=== PATIENT | male | born 1960 | race Caucasian/White ===

== ENCOUNTER → 2018-06-24 12:59 | Outpatient (CLI) | payer OTHER, SELFPAY | PROVIDERS: Family Provider Family Medicine; PCP Family Medicine; Visit Provider Family Medicine | DX: M54.2 Cervicalgia (principal) | CPT/HCPCS: 72050 ==

== ENCOUNTER 2019-07-18 08:19 | Emergency (ER) | payer OTHER, SELFPAY ==
[2019-07-18 08:21] VITALS: BP 163/85; PULSE 99; RESP 17; TEMP 36.6; O2SAT 97; BMI 34.2
--- NOTE | 2019-07-18 08:35 | EKG12_ITS ---
Test Reason : CHEST OTHER Blood Pressure : / mmHG Vent. Rate : 092 BPM Atrial Rate : 092 BPM P-R Int : 150 ms QRS Dur : 088 ms QT Int : 360 ms P-R-T Axes : 052 -41 009 degrees QTc Int : 445 ms Normal sinus rhythm Left axis deviation Low voltage QRS Poor R-Wave Progression Abnormal ECG Confirmed by BALA ORTEGA, LINDSAY ([id number]), editor publications BOBBY GAMA ([id number]) on 07/20/2019 10:42:28 AM Referred By: LUIS E Confirmed By:LINDSAY MCKENNA MD
--- NOTE | 2019-07-18 08:35 | CT_ITS ---
STUDY: CT BRAIN WITHOUT CONTRAST REASON FOR EXAM: Male, 58 years old. History of fall. RADIATION DOSAGE (If Supplied By Facility): CTDIvol = ( 44.99 ) mGy, DLP = ( 863.60 ) mGycm TECHNIQUE: Transaxial CT imaging of the brain was performed without administration of intravenous contrast material. Individualized dose optimization techniques were used for this CT. COMPARISON: No relevant priors. FINDINGS: Normal soft tissue structures. Normal calvarium. Normal size ventricles and extra-axial spaces for the patient's age. Normal white matter tracts of the cerebral hemispheres. Normal basal ganglia and thalami. Normal brainstem. Normal cerebellum. There is no intracranial hemorrhage. There are no findings of an acute ischemic infarction. Atherosclerotic calcification of the vertebral arteries and cavernous portions of the internal carotid arteries bilaterally. Normal visualized paranasal sinuses. CT/Brain/Head without Contrast IMPRESSION: Normal unenhanced CT scan of the brain. Electronically Signed: Han Awan, at 10:03 EDT , Service support ,
--- NOTE | 2019-07-18 08:35 | CT_ITS ---
STUDY: CT ABDOMEN AND PELVIS WITH CONTRAST REASON FOR EXAM: Male, 58 years old. History of fall. Right rib pain. RADIATION DOSAGE (If Supplied By Facility): CTDIvol = ( 23.43 ) mGy, DLP = ( 2516.56 ) mGycm TECHNIQUE: Transaxial images were obtained from the dome of the diaphragm to the symphysis pubis without oral contrast. 100 IV Isovue 300 was administered. Sagittal and coronal images were reconstructed. Individualized dose optimization techniques were used for this CT. COMPARISON: None. FINDINGS: Increased markings at the lung bases slightly worse on the right side with areas of confluence suggestive of bibasilar atelectasis. Coronary artery calcification. Normal liver. Normal gallbladder and extrahepatic biliary system. There are multiple benign calcified granulomata of the spleen. Normal pancreas. Normal bilateral adrenal glands. Normal right kidney. Normal left kidney. Normal visualized stomach. Normal small intestine. Normal colon. The appendix is visualized and appears normal. There is diffuse atherosclerotic calcification of the abdominal aorta, without a demonstrated aneurysm. Normal inferior vena cava. There is borderline retroperitoneal lymphadenopathy with enlarged nodes no greater than 10mm in the short axis diameter. Normal urinary bladder. Calcification of the vas deferens. There is a small umbilical hernia containing fat. There are degenerative changes of the visualized lumbar spine. Minimal loss of the superior endplate of the L1 and T12 vertebrae. Schmorl node seen in the superior endplate of the L4 vertebral CT/Abdomen/Pelvis W IV Cont ONLY IMPRESSION: Increased markings at the lung bases suggestive of bibasilar atelectasis. This is worse on the right side. Electronically Signed: Han Awan, at 10:24 EDT , Service support ,
--- NOTE | 2019-07-18 08:35 | CT_ITS ---
STUDY: CT CHEST WITH CONTRAST REASON FOR EXAM: Male, 58 years old. History of fall. Right-sided rib pain. RADIATION DOSAGE (If Supplied By Facility): CTDIvol = ( 23.43 ) mGy, DLP = ( 2516.56 ) mGycm TECHNIQUE: Transaxial imaging was performed following intravenous administration of 100 IV Isovue 300. Multiplanar coronal and sagittal images were reformatted. Individualized dose optimization techniques were used for this CT. COMPARISON: None. FINDINGS: Increased markings at the lung bases worse on the right side with areas of confluence suggestive of bibasilar atelectasis. There is no demonstrated pleural abnormality. There are calcifications of the coronary arteries. There are multiple small lymph nodes within the mediastinum, which are normal in size and morphology most compatible with reactive lymph hyperplasia. Normal hilar regions. Normal enhanced pulmonary arteries. Normal aorta arch and descending thoracic aorta. There are multi-level degenerative changes of the thoracic spine. Nondisplaced fracture of the right sixth and seventh ribs anterolaterally. Small hiatal hernia. CT/Chest WITH Contrast IMPRESSION: Nondisplaced fractures involving the anterolateral aspect of the right sixth and seventh ribs anterolaterally. Findings suggest some bibasilar atelectasis worse on the right side. Electronically Signed: Han Awan, at 10:26 EDT , Service support ,
--- NOTE | 2019-07-18 08:35 | CT_ITS ---
STUDY: CT CERVICAL SPINE WITHOUT CONTRAST REASON FOR EXAM: Male, 58 years old. History of trauma. RADIATION DOSAGE (If Supplied By Facility): CTDIvol = ( 28.55 ) mGy, DLP = ( 575.78 ) mGycm TECHNIQUE: High resolution transaxial imaging was performed without contrast material. Sagittal and coronal images were reconstructed. Individualized dose optimization techniques were used for this CT. COMPARISON: None FINDINGS: Normal craniovertebral junction. There are degenerative changes of the anterior atlantoaxial articulation. Normal odontoid process. Normal cervical lordosis. Normal vertebral bodies and posterior osseous elements. C2-3: Normal endplates. Normal disc height and morphology. Normal central canal and intervertebral neuroforamina. C3-4: Marked degree of disc space narrowing and spondylosis. Moderate degree of bilateral neural foraminal stenosis worse on the left side as well as mild central canal stenosis. C4-5: Normal endplates. Normal disc height and morphology. Normal central canal and intervertebral neuroforamina. C5-6: Normal endplates. Normal disc height and morphology. Normal central canal and intervertebral neuroforamina. C6-7: Marked degree of disc space narrowing and spondylosis. Uncovertebral arthrosis. Mild degree of bilateral neural foraminal stenosis. C7-T1: Marked degree of disc space narrowing with spondylosis. Mild degree of bilateral neural foraminal stenosis. Normal visualized soft tissue structures. CT/Spine Cervical without Contras IMPRESSION: Multilevel degenerative changes, as described above. Electronically Signed: Han Awan, at 10:20 EDT , Service support ,
--- NOTE | 2019-07-18 08:37 | ED.VISSUMM ---
- ER Visit Summary Date of Service: 07/18/19 Chief Complaint: Chest wall pain History of Present Illness: The patient is a 58 M presenting with chest wall pain. Patient states that he woke up around 2:30 AM. He felt like his blood sugar was low. He stood up and passed out. He hit the nightstand. He does not believe he hit his head. He complains of severe pain in his chest wall. He was given glucose and juice. He declined transport to the ED at that time. He woke up this morning with continued pain. He has tried Motrin at home. His pain is worse with movement. He states that he has been a diabetic since he was a child and this is not unusual for him. Denies other complaints. Physical Examination: Vitals are stable. Patient is afebrile. Alert no acute distress. HEENT exam is unremarkable. Neck is nontender Lungs are clear and equal bilaterally. Diffuse tenderness chest wall with no crepitus Heart is regular rate and rhythm. Abdomen is soft right upper quadrant tenderness with no rebound or guarding Back: No midline tenderness Extremities are unremarkable. Skin is warm and dry. No focal neurologic deficit. Remainder of exam is unremarkable. Emergency Department Course and Treatment: Patient was given IV fluids, morphine, Zofran IV. CBC showed white count of 15.9. Chemistries show glucose 435, BUN 32, creatinine 1.64. There is no old for comparison but the patient states his creatinine runs above normal. Troponin is negative. CT head and neck show no acute process. CT chest abdomen pelvis show nondisplaced fractures involving the anterolateral aspect of the right sixth and seventh ribs anterolaterally. Findings suggest some bibasilar atelectasis worse on the right side. Patient's pain is controlled in the ED. He is given an incentive spirometer. He is given a prescription for Percocet. Repeat BGT 324. Patient is comfortable managing this at home. He will follow-up with his primary care physician. Advised return to ED for worsening complaints. Disposition: Discharge home Impression: Right sixth and seventh rib fracture This note was generated with [employer] dictation software. It may contain incorrect words, spelling, and punctuation that were not noted in review of the chart prior to signing ED Disposition - Plan for ED Patient: Instructions: FRACTURE, Rib Prescriptions: Oxycodone HCl/Acetaminophen [Percocet 5/325] 1 tab PO Q6H PRN PRN 5 Days #20 tab PRN Reason: Pain Prescription Printed Referrals: Ayesha Miller MD [Primary Care Provider] -
--- NOTE | 2019-07-18 08:38 | NURSING ---
NO OLD EKGS
[2019-07-18] MEDS: Morphine 4 MG/ML Syringe IV ×2 (08:52→10:17)
[2019-07-18] MEDS: Ondansetron 4 MG/2 ML Vial IV (08:52)
[2019-07-18] MEDS: 0.9% Normal Saline 1,000 ML 1000 ML IV (08:53)
[2019-07-18 09:02] LABS: Absolute Lymphocyte Count 1.68 X10^3/uL (0.83-4.51); Absolute Neutrophil Count 12.9 X10^3/uL (2.0-7.7); Basophil# 0.04 X10^3/uL; Basophil% 0.3 % (0-1); Eosinophil# 0.05 X10^3/uL; Eosinophils% 0.3 % (0-5); Hematocrit 45.1 % (40-54); Hemoglobin 15.3 g/dL (13.0-16.5); Lymphocyte # 1.68 X10^3/ul (4.0); Lymphocyte % 10.6 % (19-41); Mean Corp Hgb Conc 33.9 g/dL (32-36); Mean Corpuscular Hgb 30.6 pg (27.0-32.0); Mean Corpuscular Volume 90.2 fL (80-94); Mean Platelet Vol. 8.3 fl (6.2-12.0); Monocyte# 1.07 X10^3/uL; Monocyte% 6.8 % (0-10); NRBC Flagged by Analyzer 0 % (0-5); Neutrophil # 12.89 X10^3/uL (2.7-7.7); Neutrophil % 81.2 % (47-70); Platelet Count 252 K/mm3 (150-450); RBC Distribution Width CV 13.2 % (11.6-14.6); RBC Distribution Width SD 43.6 fl (35.1-43.9); White Blood Count 15.9 K/mm3 (4.4-11.0)
[2019-07-18 09:27] LABS: Anion Gap 11 (5-15); BUN 32 mg/dL (7-18); BUN/Creat Ratio 19.5 RATIO (10-20); Chloride 102 mmol/L (98-107); Creatinine, Serum 1.64 mg/dL (0.70-1.30); EST Glomerular Filtration Rate 46 mL/min (>60); Est Glom Filt Rate - Afr Amer 56 mL/min (>60); Estimated Creatinine Clearance 55.49 ml/min; Glucose 435 mg/dL (74-106); Potassium 4.6 mmol/L (3.5-5.1); Sodium Level 134 mmol/L (136-145)
[2019-07-18] MEDS: 0.9% Normal Saline 1,000 ML 999 ML IV (09:50)
--- NOTE | 2019-07-18 10:45 | ED.DEP ---
ED Disposition - Plan for ED Patient: Instructions: FRACTURE, Rib Prescriptions: Oxycodone HCl/Acetaminophen [Percocet 5/325] 1 tablet PO Q6H PRN PRN 5 Days #20 tablet PRN Reason: Pain Referrals: Ayesha Miller MD [Primary Care Provider] -
[2019-07-18 10:46] LABS: Bedside Glucose 324 mg/dL (70-110)
[2019-07-18 11:03] VITALS: BP 135/76; PULSE 85; O2SAT 99
== END 2019-07-18 11:06 | disposition home or self-care (01) ==
LOC: ED 08:43
PROVIDERS: Emergency Provider Emergency Medicine; Family Provider Family Medicine; PCP Family Medicine
DX: S22.41XA Multiple fractures of ribs, right side, initial encounter for closed fracture (principal); R55 Syncope and collapse; W22.8XXA Striking against or struck by other objects, initial encounter; Y93.9 Activity, unspecified; Y92.9 Unspecified place or not applicable; E11.9 Type 2 diabetes mellitus without complications; Z79.4 Long term (current) use of insulin
CPT/HCPCS: 70450; 71260; 72125; 74177; 80048; 82962; 84484; 85025; 93005; 96361; 96374; 96375; 96376; 99283; J7030; Q9967; A4216; J2405

== ENCOUNTER 2019-07-20 08:37 | Emergency (ER) | payer OTHER, SELFPAY ==
[2019-07-20 08:38] VITALS: BP 158/76; PULSE 71; RESP 20; TEMP 36.9; O2SAT 96; BMI 36.3
--- NOTE | 2019-07-20 08:58 | RAD_ITS ---
STUDY: X-RAY CHEST REASON FOR EXAM: Male, 58 years old. Chest pain, rib pain, fall TECHNIQUE: PA and lateral views of the chest. COMPARISON: None. FINDINGS: The lungs are clear and expanded. There is no demonstrated pleural abnormality. There is moderate cardiac enlargement. Normal mediastinum and marion. Normal visualized pulmonary arteries. Normal visualized aortic arch and descending thoracic aorta. Normal visualized thoracic spine. Normal visualized ribs, clavicles, and shoulders. There is no demonstrated abnormality of the visualized soft tissue structures of the upper abdomen. RAD/Chest PA and Lateral IMPRESSION: No active disease. Electronically Signed: Praneeth Aguilar MD at 9:39 EDT Tel , Service support ,
--- NOTE | 2019-07-20 09:01 | ED.DCSUM_ITS ---
- ER Visit Summary Date of Service: 07/20/19 Chief Complaint: Complaining of right posterior back pain lateral to his T- spine. History of Present Illness: The patient is a 58 M recent fall secondary to low blood sugar causing fractures to his sixth and seventh ribs anteriorly. He was treated in this ER had CAT scans at that time of his C-spine chest abdomen and pelvis. The only findings were the rib fractures. He currently is on pain meds. States today he was having back pain along with his rib pain. Denies any shortness of breath. No fever or cough. Physical Examination: Middle-aged male. Vital signs are stable. He is afebrile. He is laying flat on his back on a EMS device to help move him. He does not look septic or toxic. H EENT exam unremarkable. Pupils round reactive light. C-spine nontender. No lymphadenopathy. Lungs clear to auscultation bilaterally. Heart regular rhythm no murmur rate about 70. Abdomen soft nontender normal bowel sounds no peritoneal signs. Chest wall right anterior chest wall discomfort consistent with fractures of the sixth seventh rib. No ecchymosis. No crepitance or subcu air. Patient is moving all 4 extremities. Neurovascular intact. Is 5-5 virtualization engineer strength bilaterally. He has 5 out of 5 dorsi and plantar flexion both lower extremities. Normal range of motion. Normal sensation. No cauda equina no saddle anesthesia. Test Results: Chest x-ray AP and lateral views x2 read by myself shows shows no acute abnormality read both by myself and the radiologist. No pneumothorax. T- spine is unremarkable. Emergency Department Course and Treatment: Treated with IV morphine and Zofran. Exam patient is doing well. Will be given a second dose of morphine. Treatment Plan: Valium for muscle spasms. Motrin and his pain medication for pain. No driving while on the muscle relaxant and/or pain medication. Follow- up with his doctor. Disposition: discharge Impression: Acute upper back pain secondary to parathoracic muscle spasm Recent fall with known rib fractures #6 and #7 on the right This note was generated with [employer] dictation software. It may contain incorrect words, spelling, and punctuation that were not noted in review of the chart prior to signing ED Disposition - Plan for ED Patient: Referrals: Ayesha Miller MD [Primary Care Provider] -
[2019-07-20] MEDS: Ondansetron 4 MG/2 ML Vial IV (09:05)
[2019-07-20] MEDS: morphine 8 MG/ML Syringe IV (09:05)
--- NOTE | 2019-07-20 10:34 | ED.DEP ---
ED Disposition - Plan for ED Patient: Disposition: Home or Assisted Living Instructions: BACK SPASM, No Trauma Prescriptions: Diazepam [Valium] 5 mg PO TID PRN PRN #20 tab PRN Reason: back spasms Prescription Printed Referrals: Ayesha Miller MD [Primary Care Provider] - As Needed Additional Instructions: Hot shower, warm baths and heating pad to back for muscle spasms. Ice to your broken ribs. Pain medication and Motrin for pain. Valium for muscle spasms. No driving while using either the muscle relaxant (Valium) or the pain medication. Follow-up with your doctor as needed.
[2019-07-20 10:46] VITALS: BP 149/72; PULSE 84; RESP 20; O2SAT 99
[2019-07-20] MEDS: morphine 8 MG/ML Syringe 6 MG IV (11:45)
[2019-07-20 11:58] VITALS: BP 140/68; PULSE 72; RESP 18; O2SAT 97
== END 2019-07-20 11:59 | disposition home or self-care (01) ==
PROVIDERS: Emergency Provider Emergency Medicine; Family Provider Family Medicine; PCP Family Medicine
DX: M54.9 Dorsalgia, unspecified (principal); M62.830 Muscle spasm of back; S22.41XD Multiple fractures of ribs, right side, subsequent encounter for fracture with routine healing; W19.XXXD Unspecified fall, subsequent encounter; E11.9 Type 2 diabetes mellitus without complications; I10 Essential (primary) hypertension; Z79.4 Long term (current) use of insulin; Z79.899 Other long term (current) drug therapy
CPT/HCPCS: 71046; 96374; 96375; 96376; 99285; A4216; J2405

== ENCOUNTER 2023-01-10 16:50 | Emergency (ER) | payer OTHER, SELFPAY ==
--- NOTE | 2023-01-10 16:47 | EKG12_ITS ---
Test Reason : Blood Pressure : / mmHG Vent. Rate : 084 BPM Atrial Rate : 084 BPM P-R Int : 144 ms QRS Dur : 094 ms QT Int : 388 ms P-R-T Axes : 056 -60 052 degrees QTc Int : 458 ms Normal sinus rhythm Left anterior fascicular block Abnormal ECG Confirmed by CHI ORTEGA, LUÍS ([id number]), art editor BOBBY GAMA ([id number]) on 01/12/2023 9:54:38 AM Referred By: ANNIE Confirmed By:YOSVANY MIRELES MD
[2023-01-10 16:51] VITALS: BP 167/87; PULSE 85; RESP 24; TEMP 36.4; O2SAT 96; BMI 33.6
[2023-01-10] MEDS: Ondansetron 4 MG/2 ML Vial IV (16:58)
[2023-01-10] MEDS: Dextrose 50%-Water 25 GM/50 ML DISP.SYRIN IV (17:02)
[2023-01-10 17:07] LABS: Absolute Lymphocyte Count 1.84 X10^3/uL (0.83-4.51); Basophil# 0.06 X10^3/uL; Basophil% 0.5 % (0-1); Eosinophil# 0.08 X10^3/uL; Eosinophils% 0.6 % (0-5); Hematocrit 50.5 % (40-54); Lymphocyte # 1.84 X10^3/ul (0.83-4.51); Lymphocyte % 14.1 % (19-41); Mean Corp Hgb Conc 33.7 g/dL (32-36); Mean Corpuscular Volume 89.2 fL (80-94); Mean Platelet Vol. 8.7 fl (6.2-12.0); Monocyte# 0.93 X10^3/uL; Monocyte% 7.1 % (0-10); NRBC Flagged by Analyzer 0 % (0-5); Neutrophil # 10.01 X10^3/uL (2.7-7.7); Platelet Count 256 K/mm3 (150-450); RBC Distribution Width CV 13.3 % (11.6-14.6); RBC Distribution Width SD 43.3 fl (35.1-43.9); Red Blood Count 5.66 M/mm3 (4.6-6.2)
--- NOTE | 2023-01-10 17:11 | EDS_ITS ---
HPI <SANCHO Kwong - Last Filed: 01/10/23 19:01> History of Present Illness Chief Complaint: Hypoglycemia Narrative Narrative: Patient is a type I diabetic. At 12:30 PM he ate a hamburger and [employer] from [employer] and it immediately upset his stomach and he went upstairs to lie down. He did NOT take insulin before lunch. About 1:30 PM he started vomiting multiple times. His blood sugar was low around 60 and his tried administering glucose tablets but he would vomit them up. Around 1:30 also started to seem little confused and slow to respond. Since they could not get his sugars up they called EMS. He normally is a very regulated diabetic and takes Humalog and Lantus. He is not sure how much Humalog he had before lunch. He denies diarrhea or abdominal pain currently. PFSH <SANCHO Kwong - Last Filed: 01/10/23 19:01> [facility] Home Medications amlodipine 5 mg tablet 5 mg PO DAILY 07/18/19 [History Last Taken Unknown] atorvastatin 10 mg tablet 10 mg PO DAILY 07/18/19 [History Last Taken Unknown] insulin glargine 100 unit/mL (3 mL) subcutaneous pen 20 unit subcut DAILY 07/18/19 [History Last Taken Unknown] levothyroxine 50 mcg tablet 50 mcg PO DAILY 07/18/19 [History Last Taken Unknown] quinapril 20 mg tablet 20 mg PO DAILY 07/18/19 [History Last Taken Unknown] diazepam 2 mg tablet 5 mg PO TID PRN PRN back spasms #20 tabs 07/20/19 [Rx Last Taken Unknown] promethazine 25 mg tablet 25 mg PO Q6H PRN nausea and vomiting #12 tabs 01/10/23 [Rx Last Taken Unknown] Allergy/AdvReac Type Severity Reaction Status Date / Time No Known Allergies Allergy Verified 07/18/19 08:20 Social History Smoking Status: Never smoker ROS <SANCHO Kwong - Last Filed: 01/10/23 19:01> ROS ED ROS Narrative Constitutional: Negative for fever, chills, malaise. CVS: Negative for chest pain, syncope. Respiratory: Negative for shortness of breath. GI: Positive for nausea, vomiting. Negative for abdominal pain, diarrhea. : Negative for dysuria. Neuro: Negative for headache. EXAM <SANCHO Kwong - Last Filed: 01/10/23 19:01> Physical Exam Narrative Exam Narrative: CONST: Patient sitting in no acute distress. EYES: Normal inspection. ENT: Normal inspection, moist mucous membranes. NECK: Normal inspection. RESP: No respiratory distress, CTAB. CVS: Regular rate and rhythm, no murmur, no gallop. ABD: Soft and nontender, no guarding or rebound, nondistended. SKIN: Color normal, no rash, warm, dry, intact. EXTREMITIES: Normal appearance, no pedal edema. NEURO: Oriented x4 but somewhat slow to respond to historical questions. Face symmetric, moving all extremities. PSYCH: Normal affect. Const Vital Signs: 01/10/23 16:51 01/10/23 17:03 01/10/23 18:54 Temperature 97.6 F L Temperature Source Oral Pulse Rate 85 Respiratory Rate 24 H Respiratory Effort Normal Non-Labored Respiratory Pattern Normal Blood Pressure 167/87 H 163/85 H Blood Pressure Mean 113 111 Pulse Ox 96 Oxygen Delivery Method Room Air <Dr. Sumit Denny DO - Last Filed: 01/10/23 20:48> Physical Exam Const Vital Signs: 01/10/23 16:51 01/10/23 17:03 01/10/23 18:54 Temperature 97.6 F L Temperature Source Oral Pulse Rate 85 Respiratory Rate 24 H Respiratory Effort Normal Non-Labored Respiratory Pattern Normal Blood Pressure 167/87 H 163/85 H Blood Pressure Mean 113 111 Pulse Ox 96 Oxygen Delivery Method Room Air MDM <SANCHO Kwong - Last Filed: 01/10/23 19:01> [facility] Narrative Medical decision making narrative: History gathered from: patient and After eating lunch patient developed nausea and vomiting, hypoglycemia and resultant altered mental status. He arrives awake and alert. BP 167/87, RR 24, otherwise normal vital signs. He is fully alert and oriented but slow to respond and cannot provide details about the onset. No focal neurological deficits. Heart is regular, lungs clear, abdomen soft and nontender. Bedside glucose is 43 so I ordered an amp of D50 and Zofran. Labs were obtained prior to this administration and show white count of 13.0, hemoglobin 17.0, glucose 47 with normal electrolytes and anion gap of 10. Patient still was vomiting after Zofran so was given Reglan and Benadryl as he also complained of a headache. These medications completely resolved his symptoms and he is feeling better. Blood sugars been stable in the 140s to 150s and he is standing at the side of his bed and states he wants to go home. I prescribed Phenergan to take as needed and we discussed he should return for intractable vomiting or hypoglycemia not correctable at home. He was agreeable with this plan and discharged in stable condition. Differential: Food poisoning, electrolyte abnormality, lower concern for intra- abdominal process such as cholecystitis or pancreatitis as he has no abdominal tenderness Lab Data Attestation: I reviewed the patient's lab results. Labs: Laboratory Results - last 24 hr 01/10/23 01/10/23 01/10/23 16:53 16:53 16:57 WBC 13.0 H RBC 5.66 Hgb 17.0 H Hct 50.5 MCV 89.2 MCH 30.0 MCHC 33.7 RDW Std Deviation 43.3 RDW Coeff of Clifford 13.3 Plt Count 256 MPV 8.7 Immature Gran % (Auto) 0.700 Neut % (Auto) 77.0 H Lymph % (Auto) 14.1 L [place] % (Auto) 7.1 Eos % (Auto) 0.6 Baso % (Auto) 0.5 Absolute Neuts (auto) 10.0 H Absolute Lymphs (auto) 1.84 Nucleated RBC % 0 Sodium 142 Potassium 3.9 Chloride 106 Carbon Dioxide 26.0 Anion Gap 10 BUN 22 H Creatinine 1.57 H Estim Creat Clear Calc 58.31 Est GFR (MDRD) Af Amer 58 L Est GFR (MDRD) Non-Af 48 L BUN/Creatinine Ratio 14.0 Glucose 47 L Calcium 9.2 Urine Color Urine Clarity Urine pH Ur Specific [place] Urine Protein Urine Glucose (UA) Urine Ketones Urine Occult Blood Urine Nitrite Urine Bilirubin Urine Urobilinogen Ur Leukocyte Esterase Urine RBC Urine WBC Ur Squamous Epith Cells Urine Bacteria Urine Mucus POC Glucose 43 L* 01/10/23 01/10/23 01/10/23 17:37 18:22 18:50 WBC RBC Hgb Hct MCV MCH MCHC RDW Std Deviation RDW Coeff of Clifford Plt Count MPV Immature Gran % (Auto) Neut % (Auto) Lymph % (Auto) [place] % (Auto) Eos % (Auto) Baso % (Auto) Absolute Neuts (auto) Absolute Lymphs (auto) Nucleated RBC % Sodium Potassium Chloride Carbon Dioxide Anion Gap BUN Creatinine Estim Creat Clear Calc Est GFR (MDRD) Af Amer Est GFR (MDRD) Non-Af BUN/Creatinine Ratio Glucose Calcium Urine Color Yellow Urine Clarity Clear Urine pH 6.0 Ur Specific [place] 1.015 Urine Protein 100 H Urine Glucose (UA) 100 H Urine Ketones 15 H Urine Occult Blood Negative Urine Nitrite Negative Urine Bilirubin Negative Urine Urobilinogen Normal Ur Leukocyte Esterase Negative Urine RBC 0 SEEN Urine WBC 0 SEEN Ur Squamous Epith Cells 0 SEEN Urine Bacteria 0 SEEN Urine Mucus 0 SEEN POC Glucose 150 H 143 H EKG Initial EKG: Attestation: I personally reviewed and interpreted this EKG as follows: Interpretation: Sinus Rhythm Comments: Normal sinus rhythm at 84 bpm, no acute ST changes <Dr. Sumit Denny, DO - Last Filed: 01/10/23 20:48> [facility] MDM Narrative Medical decision making narrative: History gathered from: patient and After eating lunch patient developed nausea and vomiting, hypoglycemia and resultant altered mental status. He arrives awake and alert. BP 167/87, RR 24, otherwise normal vital signs. He is fully alert and oriented but slow to respond and cannot provide details about the onset. No focal neurological deficits. Heart is regular, lungs clear, abdomen soft and nontender. Bedside glucose is 43 so I ordered an amp of D50 and Zofran. Labs were obtained prior to this administration and show white count of 13.0, hemoglobin 17.0, glucose 47 with normal electrolytes and anion gap of 10. Patient still was vomiting after Zofran so was given Reglan and Benadryl as he also complained of a headache. These medications completely resolved his symptoms and he is feeling better. Blood sugars been stable in the 140s to 150s and he is standing at the side of his bed and states he wants to go home. I prescribed Phenergan to take as needed and we discussed he should return for intractable vomiting or hypoglycemia not correctable at home. He was agreeable with this plan and discharged in stable condition. Differential: Food poisoning, electrolyte abnormality, lower concern for intra- abdominal process such as cholecystitis or pancreatitis as he has no abdominal tenderness This patient was seen with a PA/METAL [employer]ICAL CONTROL PROGRAMMER Individually assessed they patient including history and physical. I have reviewed everything on the chart that is available and agree with the documentation provided by the PA/METAL [employer]ICAL CONTROL PROGRAMMER including discussion about the assessment, treatment plan, discussion, and return precautions. Patient presented with confusion and hypoglycemia. PTT 43 and patient was given amp of D50. He is also nauseous and vomiting. He was given Zofran. Patient reports that he ate chili at [employer] from [employer] right before the onset of his vomiting. He states he did not take his insulin. He thinks he has food poisoning. CBC was obtained and shows a 13,000 white count which is likely reactive. Patient does not report any abdominal pain. He continued to vomit so he was given Phenergan IM. Creatinine near baseline 1.57. Electrolytes are normal. Blood glucose has come up 150 and again 143. I believe he stable this point. He is requesting to go home. He was given Phenergan for home. He is to monitor his blood glucose. Follow-up with PCP to ensure resolution. Lab Data Labs: Laboratory Results - last 24 hr 01/10/23 01/10/23 01/10/23 16:53 16:53 16:57 WBC 13.0 H RBC 5.66 Hgb 17.0 H Hct 50.5 MCV 89.2 MCH 30.0 MCHC 33.7 RDW Std Deviation 43.3 RDW Coeff of Clifford 13.3 Plt Count 256 MPV 8.7 Immature Gran % (Auto) 0.700 Neut % (Auto) 77.0 H Lymph % (Auto) 14.1 L [place] % (Auto) 7.1 Eos % (Auto) 0.6 Baso % (Auto) 0.5 Absolute Neuts (auto) 10.0 H Absolute Lymphs (auto) 1.84 Nucleated RBC % 0 Sodium 142 Potassium 3.9 Chloride 106 Carbon Dioxide 26.0 Anion Gap 10 BUN 22 H Creatinine 1.57 H Estim Creat Clear Calc 58.31 Est GFR (MDRD) Af Amer 58 L Est GFR (MDRD) Non-Af 48 L BUN/Creatinine Ratio 14.0 Glucose 47 L Calcium 9.2 Urine Color Urine Clarity Urine pH Ur Specific [place] Urine Protein Urine Glucose (UA) Urine Ketones Urine Occult Blood Urine Nitrite Urine Bilirubin Urine Urobilinogen Ur Leukocyte Esterase Urine RBC Urine WBC Ur Squamous Epith Cells Urine Bacteria Urine Mucus POC Glucose 43 L* 01/10/23 01/10/23 01/10/23 17:37 18:22 18:50 WBC RBC Hgb Hct MCV MCH MCHC RDW Std Deviation RDW Coeff of Clifford Plt Count MPV Immature Gran % (Auto) Neut % (Auto) Lymph % (Auto) [place] % (Auto) Eos % (Auto) Baso % (Auto) Absolute Neuts (auto) Absolute Lymphs (auto) Nucleated RBC % Sodium Potassium Chloride Carbon Dioxide Anion Gap BUN Creatinine Estim Creat Clear Calc Est GFR (MDRD) Af Amer Est GFR (MDRD) Non-Af BUN/Creatinine Ratio Glucose Calcium Urine Color Yellow Urine Clarity Clear Urine pH 6.0 Ur Specific [place] 1.015 Urine Protein 100 H Urine Glucose (UA) 100 H Urine Ketones 15 H Urine Occult Blood Negative Urine Nitrite Negative Urine Bilirubin Negative Urine Urobilinogen Normal Ur Leukocyte Esterase Negative Urine RBC 0 SEEN Urine WBC 0 SEEN Ur Squamous Epith Cells 0 SEEN Urine Bacteria 0 SEEN Urine Mucus 0 SEEN POC Glucose 150 H 143 H Discharge Plan Triage Chief Complaint: Hypoglycemia ED Midlevel Provider: Michelle Armstrong ED Provider: Sumit Denny Dx/Rx/DC Orders Clinical Impression: Hypoglycemia, Nausea and vomiting, Altered mental status Instructions: Hypoglycemia (Low Blood Sugar) Prescriptions: New promethazine 25 mg tablet 25 mg PO Q6H PRN (Reason: nausea and vomiting) Qty: 12 0RF No Action atorvastatin 10 MG tablet 10 mg PO DAILY amlodipine 5 MG tablet 5 mg PO DAILY Label Comments: TAKE 1 TABLET BY MOUTH EVERY DAY levothyroxine 50 MCG tablet 50 mcg PO DAILY Label Comments: TAKE 1 TABLET BY MOUTH DAILY TAKE FIRST THING IN THE MORNING ON AN EMPTY STOMACH. AVOID VITAMINS. quinapril 20 MG tablet 20 mg PO DAILY insulin glargine 100 UNIT/ML insulin pen 20 unit subcut DAILY diazepam 2 MG tablet 5 mg PO TID PRN PRN (Reason: back spasms) Qty: 20 0RF Primary Care Provider: Ayesha Miller Referrals: Ayesha Miller MD [Primary Care Provider] - Activity Restrictions/Additional Instructions: I prescribed Phenergan which you take as needed for nausea and vomiting. If your sugar drops at home again and does not respond to juice/food or your glucose tablets come back to the ER. Disposition Disposition: Home, Self Care Discharge Date/Time: 01/10/23 19:17
[2023-01-10 17:15] LABS: Bedside Glucose 43 mg/dL (74-106)
[2023-01-10 17:20] LABS: Anion Gap 10 (5-15); BUN 22 mg/dL (7-18); Calcium,Total 9.2 mg/dL (8.5-10.1); Chloride 106 mmol/L (98-107); Creatinine, Serum 1.57 mg/dL (0.70-1.30); EST Glomerular Filtration Rate 48 mL/min (>60); Est Glom Filt Rate - Afr Amer 58 mL/min (>60); Estimated Creatinine Clearance 58.31 ml/min; Glucose 47 mg/dL (74-106); Potassium 3.9 mmol/L (3.5-5.1); Sodium Level 142 mmol/L (136-145)
[2023-01-10] MEDS: DiphenhydrAMINE 50 MG/ML Syringe 25 MG IV (17:46)
[2023-01-10] MEDS: 0.9% Normal Saline 1,000 ML 999 ML IV (17:46)
[2023-01-10] MEDS: Metoclopramide 10 MG/2 ML Vial IV (17:46)
[2023-01-10 17:55] LABS: Bedside Glucose 150 mg/dL (74-106)
[2023-01-10 18:42] LABS: Bacteria 0 SEEN /hpf (None Seen); Mucous, Urine 0 SEEN /hpf (<or=2+); Red Blood Cells-Urine 0 SEEN /hpf (0-5); Squamous Epithelial Cells - UA 0 SEEN /hpf (0-5); White Blood Cells 0 SEEN /hpf (0-5)
[2023-01-10 18:44] LABS: Color, Urine Yellow (Yellow); Glucose, Dipstick 100 mg/dl (Normal); Ketone-Dipstick 15 mg/dl (Negative); Leukocyte Esterase-Dipstick Negative /ul (Negative); Nitrite-Dipstick Negative (Negative); Occult Blood-Urine Negative /ul (Negative); Protein-Dipstick 100 mg/dl (Negative); Specific Gravity, Urine 1.015 (1.002-1.030); Urine Bilirubin Dipstick Negative (Negative); Urine Clarity Clear (Clear); Urine Urobilinogen Normal (Normal)
[2023-01-10 18:54] VITALS: BP 163/85
[2023-01-10 19:11] LABS: Bedside Glucose 143 mg/dL (74-106)
== END 2023-01-10 19:17 | disposition home or self-care (01) ==
PROVIDERS: Physician Assistant; Emergency Provider Student in an Organized Health Care Education/Training Program; PCP Family Medicine; Visit Provider Student in an Organized Health Care Education/Training Program
DX: E16.2 Hypoglycemia, unspecified (principal); E10.9 Type 1 diabetes mellitus without complications; R11.2 Nausea with vomiting, unspecified; R41.82 Altered mental status, unspecified; Z79.899 Other long term (current) drug therapy
CPT/HCPCS: 80048; 81001; 82962; 85025; 93005; 96374; 96375; 99284; J7030; A4216; J2405